=== PATIENT | female | born 1990 | race Caucasian/White ===

== ENCOUNTER 2018-04-14 18:05 | Emergency (ER) | payer MEDICAID ==
[2018-04-14] MEDS ORDERED: RINGERS SOLUTION,LACTATED 1,000 ML IV PRN (18:44)
[2018-04-14] MEDS ORDERED: ONDANSETRON HCL INJ/PF 4 MG/2 ML SDV IV ONE (18:45)
--- NOTE | 2018-04-14 18:48 | ER Document Report ---
ED Medical Screen (RME) - General Chief Complaint: Vomiting Stated Complaint: VOMITING Time Seen by Provider: 04/14/18 18:42 Notes: Patient says that she has been vomiting continuously since . Has been unable to eat. Has not had a bowel movement for several weeks. She says that she has gastroparesis and this is a typical presentation for her from her gastroparesis. Has not seen any blood in her vomitus or had any bowel movements to see blood. Not aware of any fever. Only other significant history is that she has ovarian cysts. Patient says she inherited this condition from her mother. Patient does smoke marijuana. TRAVEL OUTSIDE OF THE [place] IN LAST 30 DAYS: No - Related Data Allergies/Adverse Reactions: No Known Allergies Allergy (Verified 04/14/18 18:06) Past Medical History - Social History Drug Abuse: Marijuana Review of Systems - Review of Systems Notes: E. Physical Exam - Vital signs Vitals: Pulse Resp Pulse Ox 109 H 28 H 99 04/14/18 18:09 04/14/18 18:09 04/14/18 18:09 Course - Vital Signs Vital signs: Temp Pulse Resp BP Pulse Ox 109 H 28 H 99 04/14/18 18:09 04/14/18 18:09 04/14/18 18:09
[2018-04-14] MEDS ORDERED: HALOPERIDOL LACTATE INJ 5 MG/1 ML VIAL IV ONE ×3 (18:59→20:51)
[2018-04-14 19:31] LABS: ABSOLUTE BASOPHILS # (AUTO) 0.1 10^3/uL (0.0-0.2); ABSOLUTE LYMPHOCYTES (AUTO) 1.5 10^3/uL (0.5-4.7); ABSOLUTE MONOCYTES (AUTO) 1.3 10^3/uL (0.1-1.4); ABSOLUTE NEUT (AUTO) 13.4 10^3/uL (1.7-8.2); BASOPHILS % (AUTO) 0.6 % (0-2); HEMATOCRIT 44.3 % (36.0-47.0); HEMOGLOBIN 15.3 g/dL (12.0-15.5); LYMPHOCYTES % (AUTO) 9.2 % (13-45); MEAN CORPUSCULAR HEMOGLOBIN 28.9 pg (27.0-33.4); MEAN CORPUSCULAR HGB CONC 34.6 g/dL (32.0-36.0); MEAN CORPUSCULAR VOLUME 83 fl (80-97); MONOCYTES % (AUTO) 8.1 % (3-13); PLATELET COUNT 366 10^3/uL (150-450); RED BLOOD COUNT 5.32 10^6/uL (3.72-5.28); RED CELL DISTRIBUTION WIDTH 14.6 % (11.5-14.0); SEGMENTED NEUTROPHILS % (AUTO) 82.1 % (42-78); TOTAL CELLS COUNTED % (AUTO) 100 %; WHITE BLOOD COUNT 16.3 10^3/uL (4.0-10.5)
--- NOTE | 2018-04-14 19:35 | ER Document Report ---
ED General - General Chief Complaint: Vomiting Stated Complaint: VOMITING Time Seen by Provider: 04/14/18 18:42 Notes: Patient is a 27-year-old female with a past medical history of gastritis and gastroparesis as well as marijuana abuse who presents with 8 days of nausea, vomiting and generalized abdominal pain. The patient states that her pain is a severe, cramping, diffuse pain that comes and goes. Nothing seems to trigger her symptoms and nothing seems to improve them. She states she has a long- standing history of similar symptoms in the past related to a prior diagnosis of gastroparesis. She has not had fever or constitutional symptoms. She denies chest pain or shortness of breath. No vaginal bleeding or discharge. No dysuria. She has not seen her primary care physician regarding today's concerns. TRAVEL OUTSIDE OF THE [place] IN LAST 30 DAYS: No - Related Data Allergies/Adverse Reactions: No Known Allergies Allergy (Verified 04/14/18 18:06) Past Medical History - General Information source: Patient - Social History Smoking Status: Current Every Day Smoker Frequency of alcohol use: None Drug Abuse: Marijuana Lives with: Spouse/Significant other Family History: Reviewed & Not Pertinent Patient has suicidal ideation: No Patient has homicidal ideation: No Renal/ Medical History: Reports: Hx Kidney Stones. Denies: Hx Peritoneal Dialysis Past Surgical History: Reports: Hx Section, Other - Lithotripsy for stones Review of Systems - Review of Systems Notes: Constitutional: Negative for fever. HENT: Negative for sore throat. Eyes: Negative for visual changes. Cardiovascular: Negative for chest pain. Respiratory: Negative for shortness of breath. Gastrointestinal: Positive for abdominal pain and vomiting Genitourinary: Negative for dysuria. Musculoskeletal: Negative for back pain. Skin: Negative for rash. Neurological: Negative for headaches, weakness or numbness. 10 point ROS negative except as marked above and in HPI. Physical Exam - Vital signs Vitals: Pulse Resp Pulse Ox 109 H 28 H 99 04/14/18 18:09 04/14/18 18:09 04/14/18 18:09 Interpretation: Tachycardic, Tachypneic Notes: PHYSICAL EXAMINATION: GENERAL: Appears uncomfortable, extremely anxious and in mild distress HEAD: Atraumatic, normocephalic. EYES: Pupils equal round and reactive to light, extraocular movements intact, sclera anicteric, conjunctiva are normal. ENT: nares patent, oropharynx clear without exudates. Mildly dry mucous membranes. NECK: Normal range of motion, supple without lymphadenopathy LUNGS: Breath sounds clear to auscultation bilaterally and equal. No wheezes rales or rhonchi. HEART: Regular tachycardia without murmurs ABDOMEN: Soft, diffuse pain on palpation although no localization or focal tenderness, normoactive bowel sounds. No guarding, no rebound. No masses appreciated. EXTREMITIES: Normal range of motion, no pitting or edema. No cyanosis. NEUROLOGICAL: No focal neurological deficits. Moves all extremities spontaneously and on command. PSYCH: Extremely anxious, tearful, crying out SKIN: Warm, Dry, normal turgor, no rashes or lesions noted. Course - Re-evaluation Re-evalutation: 04/14/18 19:34 Patient presents complaining of multiple issues. It is somewhat difficult to ascertain a history as the patient is lying on her boyfriend's abdomen, thrashing about, moaning, appears to be unable to provide reasonable history. She states that her symptoms have been ongoing for 9 days. Patient states that she has a history of gastroparesis although does not have any history of diabetes and is not currently on any medications. She appears extraordinarily anxious. Her exam is notable for anxiety but there is no focal abdominal tenderness on palpation. Minimally dry oral mucosa. She did receive Zofran in triage without any relief of her pain or nausea and vomiting. The patient reports that she has a long-standing history of similar presentations due to her history of gastroparesis. Will proceed with IV haloperidol for the patient' s complaint of abdominal pain associated with a history of diagnosed gastroparesis, IV fluids, await labs and reassess the patient. 04/14/18 20:07 Patient is having significant clinical improvement after receiving 3 mg of haloperidol. She is no longer writhing around in the bed, abdominal exam is benign. Resting comfortably. Labs are notable for nonspecific leukocytosis of 16.8 likely secondary to the patient's persistent vomiting. Again at this point she has no focal abdominal tenderness. Nothing to suggest an acute surgical abdominal pathology. Her labs are also notable for mild hypokalemia at 2.9. EKG will be obtained to ensure that there is no significant QT prolongation. Oral potassium and magnesium repletion will be initiated. Will also po challenge. 04/14/18 20:47 Patient continues to appear much improved. Repeat abdominal exam remains benign without any areas of focal tenderness. EKG shows borderline QT prolongation although not greater than 500 and patient has received QT prolonging agents here in the emergency department. Patient has been able to tolerate oral intake without vomiting. She has been able to ambulate without difficulty. At this time will discharge with return precautions and follow-up recommendations. Verbal discharge instructions given a the bedside and opportunity for questions given. Medication warnings reviewed. Patient is in agreement with this plan and has verbalized understanding of return precautions and the need for primary care follow-up in the next 24-72 hours. - Vital Signs Vital signs: Temp Pulse Resp BP Pulse Ox 109 H 28 H 99 04/14/18 18:09 04/14/18 18:09 04/14/18 18:09 - Laboratory Result Diagrams: 04/14/18 19:20 04/14/18 19:20 Laboratory results interpreted by me: 04/14/18 04/14/18 19:20 19:20 WBC 16.3 H RBC 5.32 H RDW 14.6 H Seg Neutrophils % 82.1 H Lymphocytes % 9.2 L Absolute Neutrophils 13.4 H Potassium 2.9 L* Chloride 95 L Anion Gap 21 H Glucose 118 H - EKG Interpretation by Me Additional EKG results interpreted by me: 04/14/18 20:51 Sinus rhythm. Rate 68. No ST elevations or depressions. QTC is 486. Discharge - Discharge Clinical Impression: Generalized abdominal pain, Hypokalemia Nausea and vomiting Qualifiers: Vomiting type: unspecified Vomiting Intractability: non-intractable Qualified Code(s): R11.2 - Nausea with vomiting, unspecified Condition: Stable Disposition: HOME, SELF-CARE Additional Instructions: You have been seen in the Emergency Department (ED) for abdominal pain. Your evaluation did not identify a clear cause of your symptoms but was generally reassuring. Please follow up with your doctor as soon as possible regarding today's emergent visit and the symptoms that are bothering you. Return to the ED if your abdominal pain worsens or fails to improve, you develop bloody vomiting, bloody diarrhea, you are unable to tolerate fluids due to vomiting, fever greater than 101, or other symptoms that concern you. Your potassium is also mildly low today. Please be sure to eat plenty of potassium rich foods including bananas, leafy green vegetables, tomato juice, and take a daily multivitamin. Please also take the potassium that is been prescribed for the next 1 week. Prescriptions: Potassium Chloride 10 meq PO BID #14 tablet.er
[2018-04-14 19:49] LABS: ALANINE AMINOTRANSFERASE 30 U/L (9-52); ALBUMIN 4.9 g/dL (3.5-5.0); ALKALINE PHOSPHATASE 66 U/L (38-126); ASPARTATE AMINO TRANSFERASE 28 U/L (14-36); BILIRUBIN,DIRECT 0.2 mg/dL (0.0-0.4); BILIRUBIN,TOTAL 0.9 mg/dL (0.2-1.3); BLOOD UREA NITROGEN 10 mg/dL (7-20); CALCIUM 10.2 mg/dL (8.4-10.2); GLUCOSE 118 mg/dL (75-110)
[2018-04-14 19:55] LABS: ANION GAP 21 (5-19); CARBON DIOXIDE 23 mmol/L (22-30); CHLORIDE 95 mmol/L (98-107); SODIUM 138.6 mmol/L (137-145)
[2018-04-14 20:01] LABS: POTASSIUM 2.9 mmol/L (3.6-5.0)
[2018-04-14] MEDS ORDERED: POTASSIUM CHLORIDE 20 MEQ/15 ML UDCUP PO ONE (20:06)
[2018-04-14] MEDS ORDERED: MAGNESIUM OXIDE 400 MG TABLET PO ONE (20:06)
[2018-04-14 20:53] LABS: APPEARANCE,URINE SLIGHTLY-CLOUDY; BILIRUBIN,URINE NEGATIVE (NEGATIVE); COLOR,URINE YELLOW; GLUCOSE, URINE NEGATIVE (NEGATIVE); KETONES,URINE NEGATIVE (NEGATIVE); LEUKOCYTE ESTERASE,URINE TRACE (NEGATIVE); NITRITE,URINE NEGATIVE (NEGATIVE); PROTEIN,URINE 30 mg/dL (NEGATIVE); URINE SPECIFIC GRAVITY 1.004; UROBILINOGEN,URINE NEGATIVE mg/dL (<2.0)
[2018-04-14 21:07] LABS: URINE AMPHETAMINES SCREEN NEGATIVE; URINE BARBITURATES SCREEN NEGATIVE; URINE BENZODIAZEPINES SCREEN NEGATIVE; URINE COCAINE SCREEN NEGATIVE; URINE MARIJUANA (THC) SCREEN UNCONFIRMED POSITIVE; URINE METHADONE SCREEN NEGATIVE; URINE PHENCYCLIDINE SCREEN NEGATIVE
[2018-04-14 22:17] VITALS: BP 115/63
--- NOTE | 2018-04-15 10:44 | EKG REPORT ---
SEVERITY:- ABNORMAL ECG - SINUS RHYTHM ABNORMAL T, CONSIDER ISCHEMIA, ANTERIOR LEADS BORDERLINE PROLONGED QT INTERVAL : Confirmed by: Sang Hadley 15-Apr-2018 10:44:04
== END 2018-04-14 22:03 | disposition home or self-care (01) ==
LOC: ER 18:05
DX: R11.2 Nausea with vomiting, unspecified (principal); R10.84 Generalized abdominal pain; E87.6 Hypokalemia; D72.829 Elevated white blood cell count, unspecified; F41.9 Anxiety disorder, unspecified; R00.0 Tachycardia, unspecified; F12.10 Cannabis abuse, uncomplicated; F17.200 Nicotine dependence, unspecified, uncomplicated; Z87.19 Personal history of other diseases of the digestive system; Z87.442 Personal history of urinary calculi
CPT/HCPCS: 93005; 96376; 99284; 96361; 96374; 96375; 36415; 83690; 84703; 85025; 80053; 81001; 80307; 93010; J3490 ×2; J1630; J2405; J7120